=== PATIENT | female | born 1965 | race Caucasian/White ===

== ENCOUNTER 2021-12-21 11:42 | Outpatient (CLI) | payer OTHER | END 2021-12-21 11:43 | disposition home or self-care (01) | LOC: CSHMAMMO 11:42 | PROVIDERS: ATTEND Family Medicine | DX: Z12.31 Encounter for screening mammogram for malignant neoplasm of breast (principal) | CPT/HCPCS: 77063; 77067 ==

== ENCOUNTER 2023-12-26 09:54 | Outpatient (CLI) | payer OTHER | END 2023-12-26 09:55 | disposition home or self-care (01) | LOC: CSHMAMMO 09:54 | PROVIDERS: ATTEND Family Medicine | DX: Z12.31 Encounter for screening mammogram for malignant neoplasm of breast (principal) | CPT/HCPCS: 77063; 77067 ==

== ENCOUNTER 2025-04-15 12:53 | Outpatient (CLI) | payer OTHER | END 2025-04-15 12:54 | disposition home or self-care (01) | LOC: CSHULT 12:53 | PROVIDERS: ATTEND Surgery | DX: R10.13 Epigastric pain (principal) | CPT/HCPCS: 76705 ==

== ENCOUNTER 2025-04-19 11:34 | Day surgery (SDC) | payer OTHER ==
[2025-04-15 14:52] VITALS: BMI 26.1
[2025-04-19] MEDS ORDERED: PROPOFOL 40 ML ONE (12:30)
[2025-04-19] MEDS ORDERED: Lidocaine 1% PF 5 ML VIAL ONE (12:35)
[2025-04-19] MEDS ORDERED: Lidocaine 2% PF 100 mg/5 ml Syringe ONE (12:39)
[2025-04-19] MEDS ORDERED: PHENYLEPHRINE-NS 100 MCG/ML 10 ML SYRINGE ONE (13:17)
[2025-04-19] MEDS ORDERED: PROPOFOL 20 ML ONE ×2 (13:39→13:55)
== END 2025-04-19 15:20 | disposition home or self-care (01) ==
LOC: CSHSDC 11:34
PROVIDERS: ATTEND Surgery
PROC: 0DBP8ZX Excision of Rectum, Via Natural or Artificial Opening Endoscopic, Diagnostic (ICD-10-PCS; principal; 2025-04-19)
PROC: 0DBL8ZX Excision of Transverse Colon, Via Natural or Artificial Opening Endoscopic, Diagnostic (ICD-10-PCS; principal; 2025-04-19)
PROC: 0DBM8ZX Excision of Descending Colon, Via Natural or Artificial Opening Endoscopic, Diagnostic (ICD-10-PCS; principal; 2025-04-19)
PROC: 0DB58ZX Excision of Esophagus, Via Natural or Artificial Opening Endoscopic, Diagnostic (ICD-10-PCS; principal; 2025-04-19)
PROC: 0DB68ZX Excision of Stomach, Via Natural or Artificial Opening Endoscopic, Diagnostic (ICD-10-PCS; principal; 2025-04-19)
DX: Z12.11 Encounter for screening for malignant neoplasm of colon (principal); D12.4 Benign neoplasm of descending colon; D12.3 Benign neoplasm of transverse colon; D12.8 Benign neoplasm of rectum; K21.00 Gastro-esophageal reflux disease with esophagitis, without bleeding; K29.70 Gastritis, unspecified, without bleeding; K57.30 Diverticulosis of large intestine without perforation or abscess without bleeding; K44.9 Diaphragmatic hernia without obstruction or gangrene; I10 Essential (primary) hypertension; Z79.899 Other long term (current) drug therapy; Z88.1 Allergy status to other antibiotic agents
CPT/HCPCS: 88305; J2003; J2704

== ENCOUNTER 2025-05-31 13:21 | Outpatient (CLI) | payer OTHER ==
[2025-05-31 14:12] LABS: Hematocrit 42.4 % (34.9-44.5); Hemoglobin 14.5 g/dL (12.0-15.5); Mean Corpuscular Hemoglobin 33.3 pg (27.0-33.0); Mean Corpuscular Volume 97.2 fL (81.6-98.3); Platelet Count 267 10x3/uL (150-450); Red Blood Cell (RBC) Count 4.36 10x6/uL (3.90-5.03); White Blood Cell (WBC) Count 10.34 10x3/uL (3.5-10.5)
[2025-05-31 14:24] LABS: Anion Gap 14 mmol/L (10-20); BUN (Urea Nitrogen) 14 mg/dL (9.8-20.1); Calc. Creatinine Clearance 0 mL/min (70-130); Calcium 9.8 mg/dL (7.8-10.44); Carbon Dioxide 27 mmol/L (22-29); Chloride 104 mmol/L (98-107); Glucose 102 mg/dL (70-105); Potassium 3.9 mmol/L (3.5-5.1); Sodium 141 mmol/L (136-145)
== END 2025-05-31 13:22 | disposition home or self-care (01) ==
LOC: CSHLAB 13:21
PROVIDERS: ATTEND Surgery
DX: Z01.818 Encounter for other preprocedural examination (principal); R10.13 Epigastric pain
CPT/HCPCS: 80048; 85027; 93005; 93010